=== PATIENT | female | born 1965 | race Caucasian/White ===

== ENCOUNTER 2019-06-05 08:11 | Outpatient (CLI) | payer OTHER, SELFPAY ==
--- NOTE | ~2019-06-05 | MM_ITS ---
EXAMINATION: MM screening doris BI w aba HISTORY: Screening mammogram TECHNIQUE: Craniocaudal and mediolateral oblique 3-D tomosynthesis images were obtained and synthetic 2-D images were generated. CAD analysis was submitted and interpreted. COMPARISON: Comparison to multiple prior studies sequentially, with oldest reviewed study dated 11/15. BREAST PARENCHYMAL COMPOSITION: The breasts are heterogeneously dense, which may obscure small masses . FINDINGS: There is no evidence of suspicious mass, calcification, or architectural distortion to sugg est malignancy in either breast. There has been no suspicious interval change. IMPRESSION: 1. No mammographic evidence of malignancy. 2. Recommend routine screening mammography in one year. BI-RADS Category 1: Negative Reviewed, dictated and finalized at location A. T CRUSHER
== END 2019-06-05 08:12 | disposition home or self-care (01) ==
PROVIDERS: PCP Internal Medicine; Visit Provider Obstetrics & Gynecology
DX: Z12.31 Encounter for screening mammogram for malignant neoplasm of breast (principal)
CPT/HCPCS: 77063; 77067

== ENCOUNTER 2020-07-25 10:09 | Outpatient (CLI) | payer OTHER, SELFPAY ==
--- NOTE | ~2020-07-25 | MM_ITS ---
EXAMINATION: MM screening doris BI w aba HISTORY: Screening mammogram TECHNIQUE: Craniocaudal and mediolateral oblique 3-D tomosynthesis images were obtained and synthetic 2-D images were generated. CAD analysis was submitted and interpreted. COMPARISON: 06/05/2019, 05/29/2018, 11/27/2016 BREAST PARENCHYMAL COMPOSITION: The breasts are heterogeneously dense, which may obscure small masses . FINDINGS: Scattered benign-appearing calcifications are present. There is no evidence of suspicious m ass, calcification, or architectural distortion to suggest malignancy in either breast. There has bee n no suspicious interval change. IMPRESSION: 1. No mammographic evidence of malignancy. 2. Recommend routine screening mammography in one year. BI-RADS Category 2: Benign finding(s). Reviewed, dictated and finalized at location A.
== END 2020-07-25 10:10 | disposition home or self-care (01) ==
LOC: ANHIMG 10:14
PROVIDERS: PCP Internal Medicine; Visit Provider Obstetrics & Gynecology
DX: Z12.31 Encounter for screening mammogram for malignant neoplasm of breast (principal)
CPT/HCPCS: 77063; 77067

== ENCOUNTER 2021-01-31 16:09 | Outpatient (CLI) | payer OTHER, SELFPAY ==
--- NOTE | ~2021-01-31 | MR_ITS ---
EXAMINATION: MR hand LT wo con DATE: 01/31/2021 17:04 INDICATION: Ganglion cyst or other subcutaneous mass at palmar aspect of the ring finger. TECHNIQUE: Magnetic resonance imaging (MRI) of the left hand was performed without intravenous contra st. Sequences included axial, coronal, and sagittal T2-weighted FS FSE and T1-weighted FSE. COMPARISON: None FINDINGS: Bone alignment is normal. No fracture. There is mild osteoarthritis of first metacarpophala ngeal joint and many of the interphalangeal joints. The flexor and extensor tendons are normal. The m usculature is normal. There is no ganglion cyst or abnormal mass. IMPRESSION: 1. No ganglion cyst or other abnormal mass. 2. Mild polyarticular osteoarthritis. Reviewed, dictated and finalized at location A.
== END 2021-01-31 16:10 | disposition home or self-care (01) ==
PROVIDERS: PCP Internal Medicine; Visit Provider Plastic Surgery
DX: M19.042 Primary osteoarthritis, left hand (principal)
CPT/HCPCS: 73218

== ENCOUNTER 2021-09-19 08:55 | Outpatient (CLI) | payer OTHER, SELFPAY ==
--- NOTE | ~2021-09-19 | MM_ITS ---
EXAMINATION: MM screening doris BI w aba HISTORY: Screening TECHNIQUE: Craniocaudal and mediolateral oblique 3-D tomosynthesis images were obtained and synthetic 2-D images were generated. CAD analysis was submitted and interpreted. COMPARISON: Comparison to multiple prior studies sequentially, with oldest reviewed study dated 04/2014. BREAST PARENCHYMAL COMPOSITION: The breasts are heterogenously dense, which may obscure small masses FINDINGS: There is no evidence of suspicious mass, calcification, or architectural distortion to sugg est malignancy in either breast. There has been no suspicious interval change. IMPRESSION: 1. No mammographic evidence of malignancy. 2. Recommend routine screening mammography in one year. BI-RADS Category 1: Negative Reviewed, dictated and finalized at location A.
== END 2021-09-19 08:56 | disposition home or self-care (01) ==
PROVIDERS: PCP Internal Medicine; Visit Provider Obstetrics & Gynecology
DX: Z12.31 Encounter for screening mammogram for malignant neoplasm of breast (principal)
CPT/HCPCS: 77063; 77067

== ENCOUNTER 2022-07-02 08:44 | Outpatient (CLI) | payer OTHER, SELFPAY ==
--- NOTE | ~2022-07-02 | US_ITS ---
US renal BI DATE: 07/02/2022 09:38 INDICATION: Hyperkalemia TECHNIQUE: Real-time and color flow imaging of kidneys and urinary bladder COMPARISON: None FINDINGS: The right kidney measures 11.7 cm length. No right renal mass lesion or hydronephrosis is e vident. Upper pole left renal mass lesion measuring up to at least [address] abdominal and pelvic examination is recommended for more definitive evaluation. No hydronephrosis of the kidneys is evident. The urinary bladder appears unremarkable. Bilateral uret eral jets were demonstrated by the technologist. IMPRESSION: Suspected upper pole left renal mass; CT abdomen pelvis examination is recommended for mo re definitive evaluation Reviewed, dictated and finalized at Location A. Reviewed, dictated and finalized at location B. IMPRESSION: Suspected upper pole left renal mass; CT abdomen pelvis examination is recommended for more definitive evaluation
== END 2022-07-02 08:45 | disposition home or self-care (01) ==
PROVIDERS: PCP Internal Medicine; Visit Provider Internal Medicine Nephrology
DX: E87.5 Hyperkalemia (principal)
CPT/HCPCS: 76775

== ENCOUNTER 2022-07-18 06:40 | Outpatient (CLI) | payer OTHER, SELFPAY ==
--- NOTE | ~2022-07-18 | CT_ITS ---
CT of the Abdomen and Pelvis: Indication: Left renal mass Technique: 2.5 mm axial scans were obtained through the abdomen and pelvis prior to and following in travenous administration of 100 cc of Omnipaque 350. Dose reduction technique was used on this scan b y utilizing automated exposure control and iterative reconstruction technique. The dose-length produc t (DLP) was 723.08 mGy-cm. Findings: Scans through the lung bases are unremarkable. The liver, spleen, pancreas, gallbladder, adrenals and right kidney are within normal limits. There i s a 7.0 x 5.7 x 7.5 cm mixed solid and cystic mass of the left upper renal pole, with some areas of p eripheral calcification of the cystic components. Solid components enhance on postcontrast images. Th ere are atherosclerotic calcifications of the aorta. No lymphadenopathy. No bowel obstruction or bowel wall thickening. There is no evidence to suggest acute appendicitis. Images through the pelvis were performed. Urinary bladder unremarkable. No adnexal mass evident. No a scites. Impression: 7.0 x 5.7 x 7.5 cm left upper pole mixed solid and cystic mass is consistent with renal cell carcinom a. Appropriate oncologic workup/follow-up recommended. No evidence of metastatic disease on this exam. Reviewed, dictated and finalized at location M. Impression: 7.0 x 5.7 x 7.5 cm left upper pole mixed solid and cystic mass is consistent wi th renal cell carcinoma. Appropriate oncologic workup/follow-up recommended. No evidence of metastatic disease on this exam.
== END 2022-07-18 06:41 | disposition home or self-care (01) ==
PROVIDERS: PCP Internal Medicine; Visit Provider Internal Medicine Nephrology
DX: N28.89 Other specified disorders of kidney and ureter (principal)
CPT/HCPCS: 74178; Q9967

== ENCOUNTER 2022-08-07 07:39 | Outpatient (CLI) | payer OTHER, SELFPAY ==
--- NOTE | ~2022-08-07 | CT_ITS ---
EXAMINATION: CT diagnostic chest wo con DATE: 08/07/2022 07:51 INDICATION: RENAL MASS TECHNIQUE: Computed tomography (CT) of the chest was performed without intravenous contrast. Addition al 3D reconstructions utilizing coronal maximum intensity projection (MIP) were performed. Automated exposure control and iterative reconstruction technique were employed. The dose-length product was 16 2.55 mGy-cm. COMPARISON: CT abdomen and pelvis dated 07/18/2022 FINDINGS: 16 x 9 x 7 mm spiculated nodule in the right middle lobe. 11 x 6 x 9 mm nodule in the anterior segmen t of the right upper lobe. Small region of tree-in-bud opacity with associated small mucous plug cons istent with endobronchial spread of disease or posteriorly in the inferior right upper lobe. There ar e a few additional scattered bilateral <4 mm pulmonary nodules. Calcified left upper lobe nodule evan g with calcified left hilar lymph nodes consistent with old granulomatous disease. No pulmonary edema or pleural effusion. Heart size is normal. Lipomatous hypertrophy of the atrial septum. Small amount of atherosclerotic coronary artery calcific lesion. No pericardial effusion. Thoracic aorta is lisa l in caliber. No pathologically enlarged thoracic lymphadenopathy. Again seen is partial rim calcific ation and a 7 cm mixed solid and cystic mass of the upper pole of the left kidney consistent with regina al cell carcinoma. Visualized upper abdomen is otherwise unremarkable. Moderate thoracic spondylosis with mild anterior wedging of a cemented lower thoracic vertebral bodies. Relatively lucent T11 heman gioma with typical pattern of thickened vertical trabecula. IMPRESSION: 1. Several scattered pulmonary nodules the majority <4 mm but with 2 significantly larger nodules wit h mean diameters of 11 mm and 9 mm in the right upper and middle lobes. Differential would include in fectious/inflammatory nodules or malignancy either primary or metastatic. Consider 3 month follow-up CT and correlation with any prior outside imaging if available . 2. 7 cm mixed solid and cystic left renal mass consistent with renal cell carcinoma. Reviewed, dictated and finalized at location L. IMPRESSION: 1. Several scattered pulmonary nodules the majority <4 mm but with 2 significan tly larger nodules with mean diameters of 11 mm and 9 mm in the right upper and middle lobes. Differential would include infectious/inflammatory nodules or ma lignancy either primary or metastatic. Consider 3 month follow-up CT and correl ation with any prior outside imaging if available . 2. 7 cm mixed solid and cystic left renal mass consistent with renal cell carci noma.
== END 2022-08-07 07:40 | disposition home or self-care (01) ==
PROVIDERS: PCP Internal Medicine; Visit Provider Urology
DX: N28.89 Other specified disorders of kidney and ureter (principal); R91.8 Other nonspecific abnormal finding of lung field
CPT/HCPCS: 71250

== ENCOUNTER 2022-10-16 13:36 | Emergency (ER) | payer OTHER, SELFPAY ==
[2022-10-16] VITALS (25 sets, daily range): BP systolic 102–166; BP diastolic 54–98; PULSE 73–115; RESP 10–23; TEMP 36.8; O2SAT 91–100
--- NOTE | ~2022-10-16 | XR_ITS ---
EXAMINATION: XR chest 1V portable DATE: 10/16/2022 15:29 INDICATION: Syncope TECHNIQUE: frontal view of the chest was obtained. COMPARISON: Chest CT dated 08/15/2022 FINDINGS: The lungs are clear with no focal airspace opacities, pulmonary edema, pleural effusion or pneumothor ax. The cardiomediastinal silhouette is normal. Visualized bones and soft tissues are unremarkable. IMPRESSION: 1. No acute cardiopulmonary disease. Reviewed, dictated and finalized at location A.
--- NOTE | 2022-10-16 13:45 | ECG_ITS ---
Measurements Intervals Oblong Rate: 90 P: 25 MT: 153 QRS: 47 QRSD: 86 T: 53 QT: 341 QTc: 418 Interpretive Statements SINUS RHYTHM BASELINE ARTIFACT- I, II, AVR NORMAL ECG COMPARED TO ECG 06/02/2018 15:17:26 NO SIGNIFICANT CHANGES Electronically Signed On 10-17-2022 7:00:11 CDT by Caio Bauer D.O.
[2022-10-16 14:05] LABS: Basophils Percent Auto 0.6 % (0.2-1.2); Eosinophils Absolute Auto 0.2 K/mm3 (0-0.3); Eosinophils Percent Auto 2.8 % (0-4.4); Hematocrit 34.3 % (37.0-47.0); Hemoglobin 11.9 g/dL (12.0-15.0); Immature Granulocyte Absolute 0.01 K/mm3 (0.00-0.031); Immature Granulocyte Percent A 0.1 % (0-0.5); Mean Corpuscular HGB Conc 34.7 g/dl (32-36); Mean Corpuscular Hemoglobin 32.1 pg (26-34); Mean Corpuscular Volume 92.5 fl (80-100); Mean Platelet Volume 9.2 fl (7.4-10.4); Monocytes Absolute Auto 0.5 K/mm3 (0.1-0.6); Monocytes Percent Auto 7.3 % (2.6-8.5); Neutrophils Absolute Auto 3.7 K/mm3 (1.3-6.7); Neutrophils Percent Auto 52.2 % (45.5-73.1); Platelet Count Result 289 k/mm3 (150-375); Red Blood Count 3.71 M/mm3 (4.2-5.4); Red Cell Distribution Width 12.3 % (11.5-14.5)
[2022-10-16 14:29] LABS: Alanine Aminotransferase 25 U/L (6-35); Albumin Level 4.3 g/dL (3.5-5.1); Alkaline Phosphatase 68 U/L (38-126); Anion Gap 5 mmol/L (8-16); Aspartate Amino Transferase 26 U/L (14-36); Bilirubin,Total 0.4 mg/dL (0.2-1.3); Blood Urea Nitrogen 21 mg/dL (7-17); Calcium 9.4 mg/dL (8.4-10.2); Carbon Dioxide 25 mmol/L (22-30); Chloride 99 mmol/L (98-107); Estimated CRCL calculation 52 ml/min; Estimated Glomerular Filt Rate 57; Glucose 98 mg/dL (65-110); Potassium 3.9 mmol/L (3.4-5.0); Sodium 129 mmol/L (137-145)
--- NOTE | 2022-10-16 15:17 | ED.SYNCOPE ---
HPI - Syncope General Chief Complaint: Syncope Stated Complaint: syncope Time Seen by Provider: 10/16/22 14:16 Source: patient, family and EMS Mode of arrival: EMS Limitations: no limitations History of Present Illness HPI narrative: Patient was sitting in the shade for 20 minutes,, 92 Fahrenheit, watching horse race, suddenly developed diaphoresis, lightheadedness, dizziness then blacked out. She denies any fever, chills, nausea, vomiting, chest pain, shortness of breath, headache, back pain or focal neurodeficit. On arrival to ED patient is asymptomatic. Patient is status post left nephrectomy September 07, 2022 secondary to cancer. Patient does not take medicine at home, she smokes cigarettes intermittently, had just little amount of alcohol today. She denies any injuries. Related Data Allergies Allergy/AdvReac Type Severity Reaction Status Date / Time No Known Allergies Allergy Verified 10/16/22 13:47 [facility] Past Medical History Medical History (Updated 10/16/22 @ 17:06 by Britney Mckoy MD) Gastro-esophageal reflux disease without esophagitis Renal mass Vaginal delivery x1 Surgical History Surgical History History of endometrial ablation 2013? History of foot surgery Family History Family History Mother Asthma Father Patient's father is Social History Social History (Updated 07/11/22 @ 10:06 by Brittany Galdamez MA) Smoking status: Current every day smoker Alcohol intake: current Substance use: unknown Lack of Transportation: No Lack of Food: Never True Current Housing: I Have Housing Concerned About Future Housing: No Difficulty Paying Gas/Electric Bills: No Difficulty Paying for Meds: No Currently Unemployed: No Education: Bachelor's Degree Difficulty w/ Childcare or Family Care: No Living arrangements: with family Gender identity (if verbalized by the patient): Female Exam Narrative: General appearance: Well-developed, well-nourished Skin: Normal color, hot to touch Head: Normocephalic, nontraumatic Eyes: Clear conjunctiva ENT: Oropharynx normal, ears normal, nose normal Neck: Supple, nontender Chest and respiratory: Airway patent, no respiratory distress, no accessory muscle use Heart: Regular rate/rhythm Abdomen: Soft, nontender, no organomegaly, quiet bowel sounds, abdominal surgical scar is dry and clean Vascular: Normal peripheral pulses, normal capillary refill. Musculoskeletal: Normal range of motion, nontender back Neurologic: Alert and oriented ?3, [employer] is normal as tested, no gross motor deficit Course Vital Signs Vital signs: Vital Signs Temperature 36.8 C 10/16/22 13:37 Pulse Rate 97 10/16/22 13:37 Respiratory Rate 18 10/16/22 13:37 Blood Pressure 118/72 10/16/22 13:37 Pulse Oximetry 98 10/16/22 13:37 Oxygen Delivery Room Air 10/16/22 13:37 Temperature 36.8 C 10/16/22 13:37 Pulse Rate 76 10/16/22 15:55 Respiratory Rate 17 10/16/22 15:55 Blood Pressure 126/54 L 10/16/22 14:09 Pulse Oximetry 98 10/16/22 15:16 Oxygen Delivery Room Air 10/16/22 13:37 MDM - Syncope MDM Narrative Medical decision making narrative: Patient presents with sudden onset of diaphoresis, lightheadedness and then blacked out. Sitting in a 92 degree temperature outdoors watching horse racing. On arrival to the ED was asymptomatic. Status post nephrectomy left side September 07, 2022. Physical examination is unremarkable, differential diagnosis, heat exhaustion, electrolyte imbalance, dehydration, rhabdomyolysis, infection,
[2022-10-16] MEDS: SODIUM CHLORIDE 0.9% IV 1,000 ML 999 ML IV CONT (15:30)
[2022-10-16 15:38] LABS: Creatine Kinase 54 U/L (30-135)
[2022-10-16 15:46] LABS: Appearance Urine Clear (Clear); Bacteria Urine None Seen /hpf; Bilirubin Urine Negative (Negative); Blood Urine 1+ (Negative); Color Urine Yellow (Yellow); Glucose Urine UA Negative (Negative); Ketones Urine Negative (Negative); Leukocyte Esterase Ur 3+ LEU/UL (Negative); Nitrate Urine Negative (Negative); Protein Urine Negative (Negative); Specific Grav Ur 1.014 (1.001-1.035); Squamous Epithelial Cell Urine None seen /hpf (Few); Urobilinogen Urine 0.2 mg/dL (<2.0); WBC Urine 21-50 /hpf; pH Urine 6.5 (5.0-9.0)
[2022-10-16 15:51] LABS: Troponin I < 0.012 ng/mL (0.000-0.034)
[2022-10-16 15:54] LABS: Add Urine Microscopic? YES
[2022-10-16 16:00] LABS: Amphetamine Screen Urine Negative (Negative); Barbiturate Screen Urine Negative (Negative); Benzodiazepines Screen Urine Negative (Negative); Cannabinoid Screen Urine Negative (Negative); Cocaine Screen Urine Negative (Negative); Methadone Screen Urine Negative (Negative); Opiate Screen Urine Negative (Negative); Phencyclidine Screen Urine Negative (Negative)
[2022-10-16] MEDS: SODIUM CHLORIDE 0.9% IV 1,000 ML 150 ML IV CONT (17:15)
== END 2022-10-16 17:59 | disposition home or self-care (01) ==
PROVIDERS: Preventive Medicine Aerospace Medicine; Emergency Provider Emergency Medicine; PCP Internal Medicine
DX: N39.0 Urinary tract infection, site not specified (principal); E87.1 Hypo-osmolality and hyponatremia; K21.9 Gastro-esophageal reflux disease without esophagitis; F17.210 Nicotine dependence, cigarettes, uncomplicated
CPT/HCPCS: 36415; 71045; 80053; 80307; 81001; 81025; 82550; 84484; 85025; 87086; 87088; 93005; 96361; 96365; 99284; J0696; J7030

== ENCOUNTER 2022-11-02 01:40 | Day surgery (SDC) | payer OTHER, SELFPAY ==
[2022-10-22 13:14] VITALS: BMI 25.0
--- NOTE | 2022-11-01 15:03 | PM.HPGS ---
History of Present Illness History of Present Illness Consent: Risks, benefits, and alternatives have been discussed and questions answered. Patient agrees to proceed with procedure. Chief complaint: hx of colon polyps Narrative: Tarsha Singh is a 57 year old female referred for colon cancer screening. She had a tubular adenoma removed about 5 years ago. Review of Systems Review of Systems: All systems reviewed & are unremarkable except as noted in HPI and below PMFSH Past Medical History Medical History Gastro-esophageal reflux disease without esophagitis Renal mass Vaginal delivery x1 Surgical History Surgical History History of endometrial ablation 2013? History of foot surgery Family History Family History Mother Asthma Father Patient's father is Social History Social History Smoking status: Current some day smoker Tobacco type: cigarettes Alcohol intake: current Drinks per week: 8 Substance use: never Lack of Transportation: No Lack of Food: Never True Current Housing: I Have Housing Concerned About Future Housing: No Difficulty Paying Gas/Electric Bills: No Difficulty Paying for Meds: No Currently Unemployed: No Education: Bachelor's Degree Difficulty w/ Childcare or Family Care: No Living arrangements: with family Gender identity (if verbalized by the patient): Female Spiritual care concerns: No Meds Home Medications and Allergies Home Medications Medication Instructions Recorded Confirmed Type No Home Medications 10/22/22 11/02/22 History Allergies Allergy/AdvReac Type Severity Reaction Status Date / Time No Known Allergies Allergy Verified 11/02/22 06:18 Exam Const: General: alert Orientation/consciousness: patient oriented x3 Resp: Auscultation: clear to auscultation bilaterally Cardio: Rhythm: regular rhythm GI: GI Palp: Yes Soft to palpation and No Tenderness to palpation present (GI) Neuro: General: patient oriented x3 Assessment and Plan Assessment and plan (1) Colon cancer screening: Code(s): Z12.11 - Encounter for screening for malignant neoplasm of colon Status: Acute Assessment and Plan: Colonoscopy with possible biopsy or polypectomy or cautery or injection of substances.
[2022-11-02 06:19] VITALS: BP 142/88; PULSE 115; RESP 16; TEMP 36.1; O2SAT 98; BMI 25.1
[2022-11-02] MEDS: LACTATED RINGERS 1,000 ML 150 ML IV CONT (06:24)
--- NOTE | 2022-11-02 07:18 | P.PNAN_ITS ---
Anes - Initial Pre Proc Eval Procedure: Operation Date: 11/02/22 07:30 Proposed Procedures p Colonoscopy - Tavares Dejesus MD Date/Time: 11/02/22 07:18 Surgeon: Tavares Dejesus MD Pre Op Diagnosis: hx of colon polyps Patient Data Age: 57 Gender: F Height: 1.68 m Weight: 70.7 kg Last Vital Signs Temp 97.0 F L 11/02/22 06:19 Pulse 115 H 11/02/22 06:19 Resp 16 11/02/22 06:19 BP 142/88 H 11/02/22 06:19 Pulse Ox 98 11/02/22 06:19 O2 Del Method Room Air 11/02/22 06:19 Allergies Allergy/AdvReac Type Severity Reaction Status Date / Time No Known Allergies Allergy Verified 11/02/22 06:18 Home Medications Medication Instructions Recorded Confirmed Type No Home Medications 10/22/22 11/02/22 History Patient hx anesthesia problems: none Family hx anesthesia problems: none Results Review: All pre-operative results and documents have been reviewed as part of the pre- operative evaluation. [facility] Past Medical History Medical History Gastro-esophageal reflux disease without esophagitis Renal mass Vaginal delivery x1 Surgical History Surgical History History of endometrial ablation 2013? History of foot surgery Family History Family History Mother Asthma Father Patient's father is Social History Social History Smoking status: Current some day smoker Tobacco type: cigarettes Alcohol intake: current Drinks per week: 8 Substance use: never Lack of Transportation: No Lack of Food: Never True Current Housing: I Have Housing Concerned About Future Housing: No Difficulty Paying Gas/Electric Bills: No Difficulty Paying for Meds: No Currently Unemployed: No Education: Bachelor's Degree Difficulty w/ Childcare or Family Care: No Living arrangements: with family Gender identity (if verbalized by the patient): Female Spiritual care concerns: No Anes - Eval Final PreProcedure Day of Procedure 11/02/22 07:18 Patient weight: normal Heart: regular rate and rhythm Lungs: clear to auscultation Airway: Mallampati scale class II Neurological: alert and oriented Last oral intake: >/= 8 hours ASA classification: III Emergent: no Anesthetic plan: proceed Anesthesia type and monitoring: general GIVS and standard monitoring Results Review: All pre-operative results and documents have been reviewed as part of the pre- operative evaluation. Informed Consent: The patient's anesthetic plan and its attendant risks and benefits were discussed with the patient/family/POA. Questions were solicited and answers provided to the satisfaction of the patient/family/POA.
[2022-11-02 07:49] VITALS: BP 109/66; PULSE 82; RESP 18; O2SAT 100
[2022-11-02 07:59] VITALS: BP 113/77; PULSE 77; RESP 20; O2SAT 100
[2022-11-02 08:09] VITALS: BP 121/84; PULSE 69; RESP 19; O2SAT 100
== END 2022-11-02 08:17 | disposition home or self-care (01) ==
PROVIDERS: PCP Internal Medicine; Visit Provider Internal Medicine Gastroenterology
PROC: 0DJD8ZZ Inspection of Lower Intestinal Tract, Via Natural or Artificial Opening Endoscopic (ICD-10-PCS; CPT 45378; principal; 2022-11-02 07:30)
DX: Z12.11 Encounter for screening for malignant neoplasm of colon (principal); D12.8 Benign neoplasm of rectum; F17.210 Nicotine dependence, cigarettes, uncomplicated
CPT/HCPCS: 45381; 45385; 88305; J2704; J7120

== ENCOUNTER 2022-12-21 06:37 | Outpatient (CLI) | payer OTHER, SELFPAY ==
--- NOTE | ~2022-12-21 | CT_ITS ---
CT Scan of the Chest without Contrast: Clinical Indication: Renal mass Technique: Contiguous sections were acquired throughout the chest without intravenous contrast. Dose reduction technique was used on this scan by utilizing automated exposure control and iterative recon struction technique. The dose-length product (DLP) was 194.97 mGy-cm. COMPARISON: 08/07/2022 Findings: There is no evidence of any significant mediastinal, hilar or axillary lymphadenopathy. The mediastin al soft tissues appear normal. There is no evidence of pleural or pericardial effusion. Right upper lobe nodule is decreased in size, now measuring 5 mm (axial image 61). Right middle lobe pulmonary nodule is also decreased in size, less confluent as compared to prior exam (axial images 70 ). Images through the upper abdomen reveal evidence of probable prior left nephrectomy. Impression: The 2 largest nodules seen on prior exam, in the right upper lobe and right middle lobe, are decrease d in size. This could reflect improving metastatic disease if there has been interval therapy, versus improving pneumonia. Correlate clinically and with treatment history. Remaining tiny nodules seen on prior exam appear to be essentially resolved. Status post interval left nephrectomy. Reviewed, dictated and finalized at location . Impression: The 2 largest nodules seen on prior exam, in the right upper lobe and right mid dle lobe, are decreased in size. This could reflect improving metastatic diseas e if there has been interval therapy, versus improving pneumonia. Correlate cli nically and with treatment history. Remaining tiny nodules seen on prior exam appear to be essentially resolved. Status post interval left nephrectomy.
== END 2022-12-21 06:38 | disposition home or self-care (01) ==
PROVIDERS: PCP Internal Medicine; Visit Provider Urology
DX: N28.89 Other specified disorders of kidney and ureter (principal); R91.8 Other nonspecific abnormal finding of lung field
CPT/HCPCS: 71250

== ENCOUNTER 2022-12-25 15:41 | Outpatient (CLI) | payer OTHER, SELFPAY ==
--- NOTE | ~2022-12-25 | MM_ITS ---
EXAMINATION: MM screening doris BI w aba HISTORY: Screening TECHNIQUE: Craniocaudal and mediolateral oblique 3-D tomosynthesis images were obtained and synthetic 2-D images were generated. CAD analysis was submitted and interpreted. COMPARISON: Comparison to multiple prior studies sequentially, with oldest reviewed study dated 11/22. BREAST PARENCHYMAL COMPOSITION: The breasts are heterogeneously dense, which may obscure small masses FINDINGS: There is no evidence of suspicious mass, calcification, or architectural distortion to sugg est malignancy in either breast. There has been no suspicious interval change. IMPRESSION: 1. No mammographic evidence of malignancy. 2. Recommend routine screening mammography in one year. BI-RADS Category 1: Negative. Reviewed, dictated and finalized at location A.
== END 2022-12-25 15:42 | disposition home or self-care (01) ==
PROVIDERS: PCP Internal Medicine; Visit Provider Obstetrics & Gynecology
DX: Z12.31 Encounter for screening mammogram for malignant neoplasm of breast (principal)
CPT/HCPCS: 77063; 77067

== ENCOUNTER 2023-01-24 16:22 | Emergency (ER) | payer OTHER, SELFPAY ==
[2023-01-24 16:47] VITALS: BP 159/99; PULSE 108; RESP 16; TEMP 36.5; O2SAT 100
--- NOTE | 2023-01-24 17:11 | ED.FEMALEGU ---
HPI - Female Genitourinary General Chief complaint: Urogenital-Female Stated complaint: Uti symptoms Time Seen by Provider: 01/24/23 17:03 Source: patient and RN notes reviewed Mode of arrival: ambulatory Limitations: no limitations History of Present Illness HPI Narrative: Patient presents today complaining of frequency and dysuria since yesterday. Denies any additional symptoms to include abdominal pain, back pain, fever, or vomiting. She has not tried any [id number] medication for symptoms prior to arrival. She had a left nephrectomy in September 2022. Related Data Allergies Allergy/AdvReac Type Severity Reaction Status Date / Time No Known Allergies Allergy Verified 01/24/23 16:43 Review of Systems Review of Systems: CONSTITUTIONAL: Denies body aches, fever, chills, or sweats. EYES: Denies visual changes, redness, or discharge. ENT: Denies rhinorrhea, congestion, sore throat, or otalgia. CARDIOVASCULAR: Denies chest pain, palpitations, or edema. RESPIRATORY: Denies cough or dyspnea. GASTROINTESTINAL: Denies abdominal pain, nausea, vomiting, or diarrhea. GENITOURINARY: + dysuria, frequency SKIN: Denies rash, itching, or wounds. MUSCULOSKELETAL: Denies back pain, joint pain, or myalgia. NEUROLOGIC: Denies headache, numbness, tingling, or weakness. PSYCH: Denies depression or anxiety. [facility] Past Medical History Medical History Gastro-esophageal reflux disease without esophagitis Personal history of renal cancer Renal mass Vaginal delivery x1 Surgical History Surgical History History of endometrial ablation 2013? History of foot surgery History of nephrectomy, left 09/2022 Family History Family History Mother Asthma Father Patient's father is Social History Social History Smoking status: Former smoker Tobacco type: cigarettes Smoking end date: 09/06/22 Alcohol intake: current Drinks per week: 8 Substance use: never Lack of Transportation: No Lack of Food: Never True Current Housing: I Have Housing Concerned About Future Housing: No Difficulty Paying Gas/Electric Bills: No Difficulty Paying for Meds: No Currently Unemployed: No Education: Bachelor's Degree Difficulty w/ Childcare or Family Care: No Living arrangements: with family Occupation/Education: occupation Additional occupation/education comments: Teacher Gender identity (if verbalized by the patient): Female Spiritual care concerns: No Comments At time of signature, I have reviewed and agree with nursing past medical, surgical, social and family history unless otherwise noted. Please see nursing chart for further information. There is no relevant family history pertinent to the presenting complaint Exam Narrative: GENERAL: Well-appearing, well-nourished, and in no acute distress. HEAD: Normocephalic, atraumatic. EYES: EOMI. No redness or drainage. Conjunctivae normal. ENT: Mucous membranes pink and moist. NECK: Normal AROM. CHEST: No respiratory distress. EXTREMITIES: Normal range of motion. No edema. SKIN: Warm, dry, no rash. Capillary refill normal. Normal skin turgor. NEURO: No focal deficits. Alert and oriented x3. Gait steady. PSYCH: Normal affect. No signs of depression or anxiety. Course Course Level of Care: Express Care Visit Vital Signs Vital signs: Vital Signs Temperature 97.7 F 01/24/23 16:47 Pulse Rate 108 H 01/24/23 16:47 Respiratory Rate 16 01/24/23 16:47 Blood Pressure 159/99 H 01/24/23 16:47 Pulse Oximetry 100 01/24/23 16:47 Temperature 97.7 F 01/24/23 16:47 Pulse Rate 108 H 01/24/23 16:47 Respiratory Rate 16 01/24/23 16:47 Blood Pressure 159/99 H 01/24/23
== END 2023-01-24 17:18 | disposition home or self-care (01) ==
PROVIDERS: Emergency Provider Nurse Practitioner; PCP Internal Medicine
DX: N30.01 Acute cystitis with hematuria (principal); Z87.891 Personal history of nicotine dependence; K21.9 Gastro-esophageal reflux disease without esophagitis; Z85.528 Personal history of other malignant neoplasm of kidney; Z90.5 Acquired absence of kidney
CPT/HCPCS: 81003; 87086; 87088; 99213; G0463

== ENCOUNTER 2023-04-03 06:35 | Outpatient (CLI) | payer OTHER, SELFPAY ==
--- NOTE | ~2023-04-03 | CT_ITS ---
EXAMINATION:CT diagnostic chest w con DATE: 04/03/2023 07:21 INDICATION: Renal cell adenocarcinoma. TECHNIQUE: Computed tomography (CT) of the chest was performed with 100 mL Omnipaque 350 intravenous contrast. Automated exposure control and iterative reconstruction technique were employed. The dose-l ength product (DLP) was 303.34 mGy-cm. COMPARISON: Chest CT 12/21/2022, 08/07/2022 FINDINGS: There is a cluster of centrilobular nodules in right middle lobe, likely infection. There i s a 7 mm nodule in right upper lobe that is stable from 12/21/22 and measured 9 mm on 08/07/22. There ar e a few scattered nodules measuring up to 3 mm. Calcified left lung nodules and calcified left hilar lymph nodes are consistent with old granulomatous disease. No pleural effusion. The heart size is nor mal. No pericardial effusion. There are coronary artery calcifications. There are changes of left nep hrectomy and adrenalectomy. There is moderate thoracic spondylosis. There is a hemangioma in T11 vert ebral body. IMPRESSION: 1. Small pulmonary nodules, which may be infection or less likely metastatic disease. Reviewed, dictated and finalized at location E. UDER TENDER IMPRESSION: 1. Small pulmonary nodules, which may be infection or less likely metastatic di francisco javier.
--- NOTE | ~2023-04-03 | CT_ITS ---
EXAMINATION: CT abdomen pelvis wo/w con DATE: 04/03/2023 07:21 INDICATION: Renal cell adenocarcinoma TECHNIQUE: Computed tomography (CT) of the abdomen and pelvis was performed without and with 100 mL O mnipaque-350 intravenous contrast. Automated exposure control and iterative reconstruction technique were employed. The dose-length product was 1091.79 mGy-cm. COMPARISON: 07/18/2022 FINDINGS: Lung bases are clear. Heart size is normal. No pericardial or pleural effusion. Multiple gallstones w ithin the otherwise normal-appearing gallbladder with no pericholecystic infiltrate stranding to sugg est acute cholecystitis. Liver, spleen, pancreas, right adrenal gland and right kidney are normal. St atus post left nephrectomy and adrenalectomy. No abnormal soft tissue deposits at the nephrectomy bed to suggest recurrent renal cell carcinoma. Bladder is normal. Bowels including the appendix are norm al. Bladder is normal. Retroverted retroflexed uterus and bilateral adnexa are unremarkable. Small am ount of likely physiologic free fluid along a couple likely dropped surgical clips in the cul-de-sac. Bilateral small fat-containing inguinal hernias. Mild lumbar and lower thoracic spondylosis with T11 hemangioma and sclerotic bone islands at L1. IMPRESSION: 1. Status post left nephrectomy and adrenalectomy with no evident residual/recurrent or metastatic di sease. 2. Cholelithiasis. Reviewed, dictated and finalized at location A. CTOR RADIO NEWS IMPRESSION: 1. Status post left nephrectomy and adrenalectomy with no evident residual/recu rrent or metastatic disease. 2. Cholelithiasis.
[2023-04-03 07:08] LABS: Estimated Glomerular Filt Rate 51
[2023-04-03 08:33] LABS: Albumin Level 4.2 g/dL (3.5-5.1); Anion Gap 9 mmol/L (8-16); Blood Urea Nitrogen 15 mg/dL (7-17); Calcium 9.6 mg/dL (8.4-10.2); Carbon Dioxide 25 mmol/L (22-30); Chloride 104 mmol/L (98-107); Estimated Glomerular Filt Rate 57; Glucose 93 mg/dL (65-110); Phosphorus 4.2 mg/dL (2.5-4.5); Sodium 138 mmol/L (137-145)
[2023-04-03 08:38] LABS: Potassium 4.8 mmol/L (3.4-5.0)
== END 2023-04-03 06:36 | disposition home or self-care (01) ==
PROVIDERS: PCP Internal Medicine; Visit Provider Urology
DX: E87.5 Hyperkalemia (principal); C64.2 Malignant neoplasm of left kidney, except renal pelvis; R91.8 Other nonspecific abnormal finding of lung field; K80.20 Calculus of gallbladder without cholecystitis without obstruction
CPT/HCPCS: 71260; 74178; 80069; Q9967

== ENCOUNTER 2023-11-06 06:34 | Outpatient (CLI) | payer OTHER, SELFPAY ==
--- NOTE | ~2023-11-06 | CT_ITS ---
EXAMINATION: CT chest abdomen pelvis w con DATE: 11/06/2023 07:36 INDICATION: Renal cell adenocarcinoma. TECHNIQUE: Computed tomography (CT) of the chest, abdomen, and pelvis was performed with 100 mL Omnip aque 350 intravenous contrast. Automated exposure control and iterative reconstruction technique were employed. The dose-length product was 992.20 mGy-cm. COMPARISON: Chest CT 04/03/2023, CT abdomen and pelvis 04/03/2023 FINDINGS: CHEST CT: The lungs demonstrate mild atelectasis. There is a 6 mm nodule in right upper lobe. There are few nod ules in the lungs measuring up to 3 mm. A calcified left lung nodule and calcified left hilar and med iastinal lymph nodes are consistent with old granulomatous disease. No pleural effusion. The heart si ze is normal. No pericardial effusion. There are coronary artery calcifications. There is mild thorac ic spondylosis. There is mild chronic anterior wedging of multiple vertebral bodies. There is a heman gioma in T11 vertebral body. ABDOMEN/PELVIS CT: The liver, gallbladder, spleen, pancreas, right adrenal gland are normal. There is a 7 mm cyst in rig ht kidney. There are changes of left adrenalectomy and left nephrectomy. There are no dilated loops o f bowel. The appendix is normal. There is calcified atherosclerosis of the aorta and many of the othe r arteries. There is physiologic fluid in the pelvis. There is severe lumbar spondylosis. IMPRESSION: 1. Stable small pulmonary nodules which may be granulomatous disease or less likely metastatic diseas e. Reviewed, dictated and finalized at location A. IMPRESSION: 1. Stable small pulmonary nodules which may be granulomatous disease or less li chivo metastatic disease.
== END 2023-11-06 06:35 | disposition home or self-care (01) ==
PROVIDERS: PCP Internal Medicine; Visit Provider Urology
DX: C64.2 Malignant neoplasm of left kidney, except renal pelvis (principal); R91.8 Other nonspecific abnormal finding of lung field
CPT/HCPCS: 71260; 74177; Q9967

== ENCOUNTER 2024-03-04 08:51 | Outpatient (CLI) | payer OTHER, SELFPAY ==
--- NOTE | ~2024-03-04 | MM_ITS ---
EXAMINATION: MM screening doris BI w aba HISTORY: Screening TECHNIQUE: Craniocaudal and mediolateral oblique 3-D tomosynthesis images were obtained and synthetic 2-D images were generated. CAD analysis was submitted and interpreted. COMPARISON: Comparison to multiple prior studies sequentially, with oldest reviewed study dated 06/05. BREAST PARENCHYMAL COMPOSITION: Dense: The breasts are heterogeneously dense, which may obscure small masses FINDINGS: There are developing nodular asymmetries in the periareolar location in the right breast. T he left breast is stable without evidence for malignancy. IMPRESSION: 1. Developing nodular asymmetries of the right breast. 2. Additional mammographic views and possible breast ultrasound are recommended. BI-RADS Category 0: Incomplete: Needs additional imaging evaluation. Reviewed, dictated and finalized at location B. L SEWER IMPRESSION: 1. Developing nodular asymmetries of the right breast. 2. Additional mammographic views and possible breast ultrasound are recommended . BI-RADS Category 0: Incomplete: Needs additional imaging evaluation.
== END 2024-03-04 08:52 | disposition home or self-care (01) ==
LOC: ANHIMG 08:54
PROVIDERS: PCP Internal Medicine; Visit Provider Obstetrics & Gynecology
DX: Z12.31 Encounter for screening mammogram for malignant neoplasm of breast (principal); N64.89 Other specified disorders of breast
CPT/HCPCS: 77063; 77067

== ENCOUNTER 2024-03-23 10:26 | Outpatient (CLI) | payer OTHER, SELFPAY ==
--- NOTE | ~2024-03-23 | MMUS_ITS ---
EXAMINATION: MM diagnostic doris RT w aba, US breast RT complete HISTORY: Follow-up right breast asymmetries TECHNIQUE: Additional 3-D tomosynthesis images of the right breast were performed and synthetic 2-D i mages were generated. CAD analysis was submitted and interpreted. High resolution complete right luisito st ultrasound was performed. COMPARISON:Comparison to multiple prior studies sequentially, with oldest reviewed study dated 2018. BREAST PARENCHYMAL COMPOSITION: Dense: The breasts are heterogeneously dense, which may obscure small masses FINDINGS: MAMMOGRAPHIC FINDINGS: There are no suspicious masses, calcifications or architectural distortion in the right breast to sug gest malignancy. ULTRASOUND: Complete US of all 4 quadrants of the right breast/s and retroareolar region was reviewed. Normal het erogeneous echotexture without focal solid or cystic mass. IMPRESSION: 1. No evidence for malignancy in the right breast. 2. Routine yearly screening mammogram and regular clinical breast examination are recommended. BI-RADS Category 1: Negative Reviewed, dictated and finalized at location B. ENT FOLDER IMPRESSION: 1. No evidence for malignancy in the right breast. 2. Routine yearly screening mammogram and regular clinical breast examination a re recommended. BI-RADS Category 1: Negative
== END 2024-03-23 10:27 | disposition home or self-care (01) ==
LOC: ANHIMG 10:28
PROVIDERS: PCP Internal Medicine; Visit Provider Obstetrics & Gynecology
DX: R92.8 Other abnormal and inconclusive findings on diagnostic imaging of breast (principal)
CPT/HCPCS: 76641; 77061; 77065; G0279

== ENCOUNTER 2024-09-29 07:32 | Outpatient (CLI) | payer OTHER, SELFPAY ==
--- NOTE | ~2024-09-29 | CT_ITS ---
Clinical Indication: Renal cell carcinoma CT Scan of the Chest with Contrast: Technique: Contiguous sections were acquired throughout the chest after intravenous administration of 100 cc of Omnipaque 350. Dose reduction technique was used on this scan by utilizing automated expos ure control and iterative reconstruction technique. The dose-length product (DLP) was 0.00 mGy-cm. COMPARISON: 11/06/2023 Findings: There is no evidence of any significant mediastinal, hilar or axillary lymphadenopathy. There is no f illing defect in the pulmonary arterial tree to suggest pulmonary embolus. There is no evidence of ao rtic dissection or aneurysm. There is no evidence of pleural or pericardial effusion. A few subcentimeter pulmonary nodules are unchanged. Minimal groundglass opacities at the lung bases are unchanged. Images through the upper abdomen reveal no abnormalities. Impression: A few subcentimeter pulmonary nodules are unchanged, most likely benign. Reviewed, dictated and finalized at [facility]. Impression: A few subcentimeter pulmonary nodules are unchanged, most likely benign.
--- NOTE | ~2024-09-29 | CT_ITS ---
CT of the Abdomen and Pelvis: Indication: Renal cell carcinoma Technique: 2.5 mm axial scans were obtained through the abdomen and pelvis prior to and following in travenous administration of 100 cc of Omnipaque 350. Dose reduction technique was used on this scan b y utilizing automated exposure control and iterative reconstruction technique. The dose-length produc t (DLP) was 848.78 mGy-cm. COMPARISON: 11/06/2023 Findings: Scans through the lung bases are unremarkable. The liver, spleen, pancreas, gallbladder, right adrenal gland, and right kidney are within normal berrios its. Status post left nephrectomy and possible left adrenalectomy. No evidence of aortic aneurysm. N o lymphadenopathy. No bowel obstruction or bowel wall thickening. There is no evidence to suggest acute appendicitis. Images through the pelvis were performed. Urinary bladder unremarkable. No pelvic mass seen. No ascit es. Impression: No evidence for active malignancy or metastatic disease. Status post left nephrectomy. Reviewed, dictated and finalized at location . Impression: No evidence for active malignancy or metastatic disease. Status post left nephrectomy.
[2024-09-29 07:59] LABS: Estimated Glomerular Filt Rate 57
== END 2024-09-29 07:33 | disposition home or self-care (01) ==
PROVIDERS: PCP Internal Medicine; Visit Provider Urology
DX: C64.2 Malignant neoplasm of left kidney, except renal pelvis (principal); Z90.5 Acquired absence of kidney
CPT/HCPCS: 71260; 74178; Q9967

== ENCOUNTER 2025-03-25 13:11 | Outpatient (CLI) | payer OTHER, SELFPAY ==
--- NOTE | ~2025-03-25 | MM_ITS ---
EXAMINATION: screening [facility] BI w aba INDICATION: Asymptomatic, referred for screening mammogram COMPARISON: 03/04/2024 through 06/05/2019 TECHNIQUE: Digital Breast Tomosynthesis CC, MLO views of Both breasts were obtained with computer-aided detection to assist in interpretation of the study. FINDINGS: The breasts are heterogeneously dense, which may obscure small masses. There is an asymmetry seen on the cc view in the Lateral right breast at middle third. Elsewhere, there are no mammographic features of malignancy. IMPRESSION: 1. Right breast Asymmetry. 2. No evidence of malignancy in the Left breast. RECOMMENDATION: Right breast Diagnostic mammogram with true lateral, appropriate spot compression views and an ultrasound if needed. BI-RADS Category 0: Incomplete: Needs additional imaging evaluation. Reviewed, dictated and finalized at location A. ESSOR OF GEOGRAPHY IMPRESSION: 1. Right breast Asymmetry. 2. No evidence of malignancy in the Left breast. RECOMMENDATION: Right breast Diagnostic mammogram with true lateral, appropriate spot compressi on views and an ultrasound if needed. BI-RADS Category 0: Incomplete: Needs additional imaging evaluation.
--- OUTSIDE RECORDS SUMMARY | 2025-03-25 14:07 | XMS_ITS | Clinical Summary ---
Author Organization [facility] Address [address] [place] [address] Care Team Providers Care Fruit Peeler Name Role Phone Sky Kohler Primary Care Provider Source Comments [facility],non-owned Affiliates and Associated Physician Practices is amultiple site organization consisting of ambulatory clinics and hospital sitesin [place], [place], [place] and [place]. This disclosure is being madepursuant to the Care Everywhere program and may not contain all information available regarding this patient. 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 Gender Identity Not on file Sexual Orientation Not on file Plan of Treatment Health Maintenance Due Date Last Done Comments COLOGUARD (AGES 45-75) - COL ON CA SCREENING 1966 COLON MONITORING 1966 COLONOSCOPY - COLON CA SCREENING 1966 CT COLONOGRAPHY - COLON CA SCREENING 1966 Colorectal Cancer Screening 1966 FIT - COLON CA SCREENING 1966 FLEX SIG - COLON CA SCREENING 1966 LIPID TESTING 1966 MAMMOGRAM 1966 HIV SCREENING 1981 HEPATITIS C SCREENING 01/25/1984 DTAP/TDAP/TD VACCINES (1 - Tdap) 1985 HEPATITIS B VACCINE (1 of 3 - 19+ 3-dose series) 1985 PAP SMEAR 1987 PNEUMOCOCCAL VACCINE 50+ (1 of 1 - PCV) 01/30/2016 ZOSTER VACCINE (1 of 2) 01/30/2016 DEPRESSION SCREENING 04/08/2024 COVID-19 VACCINE (1 - 2024-2 6 season) 2024 INFLUENZA VACCINE (#1) 2024 2, 01/20/2021, 01/20/2020 HIB VACCINE Aged Out No longer eligi ble based on patient's age to complete this topic HPV VACCINE Aged Out No longer eligi ble based on patient's age to complete this topic MENINGOCOCCAL (Group B) VACCINE SHARED DECISION-MAKING Aged Out No longer eligible based on patient's age to complete this topic MENINGOCOCCAL GROUPS A/C/Y/W VACCINE Aged Out No longer eligible b ased on patient's age to complete this topic Insurance [employer] Care Teams Fruit Peeler Relationship Specialty Start Date End Date Sky Kohler DO [address] [place], [place] [id number] PCP - General 10/16/17
--- OUTSIDE RECORDS SUMMARY | 2025-03-25 14:07 | XMS_ITS | Clinical Summary ---
Author Organization [facility] Address [address] [place] [address] Care Team Providers Care Streets And Buildings Decorator Name Role Phone Sky Kohler MD Primary Care Provider [phone] Jameson Greer MD Unavailable [phone] Allergies No known active allergies Medications HYDROcodone-acet aminophen (NORCO) 5-325 mg per tabletIndication s:Pain Take 1 tablet by mouth every 6 (six) hours as needed for pain 20 tablet 09/07/2022 Active Active Problems Problem Noted Date Diagnosed Date Renal mass, left 09/07/2022 Left renal mass 08/02/2022 Immunizations Immunization Administration Dates Next Due Influenza, Quadrivalent, Spl it, Preservative Free, Intramuscular 01/24/2022,01/20/2021,01/20/2020 Tdap 08/20/2022 ZOSTER Recombinant 07/09/2022,04/30/2022 Surgical History Surgery Date Site/Laterality Comments ABLATION FOOT SURGERY Bilateral BLADDER SUSPENSION Social History Tobacco Use Types Packs/Day Years Used Date Smoking Tobacco: Every Day Cigarettes Tobacco Cessation:Ready to Q uit: Not Asked; Counseling Given: Not Answered AUDIT-C Answer Date Recorded Q1: How often do you have a drink containing alc ohol? 2-4 times a month 08/17/2022 Q2: How many drinks containi ng alcohol do you have on a typical day when you are drinking? 7 to 9 08/17/2022 Q3: How often do you have si x or more drinks on one occasion? Monthly 08/17/2022 Personal Safety Answer Date Recorded Have you ever been in or are you currently in a harmful physical or emotional relationship or is someone making you feel afraid or unsafe? 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 Gender Identity Not on file Sexual Orientation Not on file Last Filed Vital Signs Vital Sign Reading Time Taken Comments Blood Pressure 123/75 09/09/2022 12:05 PM CDT Pulse 85 09/09/2022 12:05 PM CDT Temperature 36.3 C (97.4 F) 09/09/2022 12:05 PM CDT Respiratory Rate 18 09/09/2022 12:05 PM CDT Oxygen Saturation 94% 09/09/2022 12:05 PM CDT Inhaled Oxygen Concentration - - Weight 71.2 kg (157 lb) 09/07/2022 12:58 PM CDT Height 167.6 cm (5' 6) 09/07/2022 7:12 AM CDT Body Mass Index 25.34 09/07/2022 7:12 AM CDT Plan of Treatment Health Maintenance Due Date Last Done Comments Breast Cancer Screening-Mammogram 1966 Cervical Cancer Screening 1966 Colon Cancer Screening-Colonoscopy 1966 Depression Screening 1966 Hepatitis C Screening 1966 Hepatitis B Screening 01/30/1984 Regular Well Visit/Exam 18-64 01/30/1984 Pneumococcal vaccine <65 (1 of 2 - PCV) 1985 Covid-19 Vaccine ( season) 2024 05/18/2021, 05/21/2020, 04/23/2020 Influenza Vaccine (#1) 2024 2, 01/20/2021, 01/20/2020 DTaP/Tdap/Td Vaccine (2 - Td or Tdap) 08/20/2032 Zoster Vaccine Completed 07/09/2022, 04/30/2022 Insurance [employer] Advance Directives For more information, please contact: [phone] * Full Code (Latest Code Status on File) Date Activated Date Inactivated Comments 09/09/2022 2:19 PM 09/09/2022 6:46 PM * Full Code Date Activated Date Inactivated Comments 09/07/2022 10:44 AM 09/09/2022 2:19 PM Care Teams Streets And Buildings Decorator Relationship Specialty Start Date End Date Sky Kohler MD [address] [facility] [address] [place] [address] PCP - General Internal Medicine 08/17/22 [place] [id number] [place] [id number] Consulting Physician Urology 09/07/22
== END 2025-03-25 13:12 | disposition home or self-care (01) ==
PROVIDERS: PCP Internal Medicine; Visit Provider Obstetrics & Gynecology
DX: Z12.31 Encounter for screening mammogram for malignant neoplasm of breast (principal); R92.8 Other abnormal and inconclusive findings on diagnostic imaging of breast
CPT/HCPCS: 77063; 77067